=== PATIENT | female | born 1975 | race Two or more races ===

== ENCOUNTER 2023-04-01 18:09 | Emergency (ER) | payer OTHER ==
[~2023-04-01] VITALS: Ht 167.6 cm; Wt 72.6 kg
== END 2023-04-01 18:58 | disposition home or self-care (01) ==
LOC: ER 18:09
DX: S60.519A Abrasion of unspecified hand, initial encounter (principal); S50.819A Abrasion of unspecified forearm, initial encounter; W55.01XA Bitten by cat, initial encounter; Y93.89 Activity, other specified; Y92.89 Other specified places as the place of occurrence of the external cause; Y99.8 Other external cause status

== ENCOUNTER 2023-04-23 12:52 | Emergency (ER) | payer OTHER ==
[~2023-04-23] VITALS: Ht 167.6 cm; Wt 71.2 kg
== END 2023-04-23 16:26 | disposition home or self-care (01) ==
LOC: ER 12:52
DX: M79.641 Pain in right hand (principal); S61.451S Open bite of right hand, sequela; W55.01XS Bitten by cat, sequela; R60.0 Localized edema; R20.2 Paresthesia of skin

== ENCOUNTER 2023-06-30 13:11 | Emergency (ER) | payer OTHER ==
[~2023-06-30] VITALS: Ht 167.6 cm; Wt 70.8 kg
[2023-06-30 14:47] LABS: HEMATOCRIT 37.7 % (36.0-45.00); HEMOGLOBIN 12.1 g/dL (12.0-15.00); MEAN CELL VOLUME 85.4 fL (80.00-100.00); MEAN CORPUSCULAR HEMOGLOBIN 27.5 pg (27.00-32.0); MEAN CORPUSCULAR HGB CONC 32.2 g/dl (32.0-36.0); PLATELET COUNT 271 K/uL (150-450); RED BLOOD COUNT 4.41 M/uL (4.00-6.00)
[2023-06-30 15:03] LABS: RED CELL DISTRIBUTION WIDTH 17.6 % (11.5-14.5)
== END 2023-06-30 16:45 | disposition home or self-care (01) ==
LOC: ER 13:11
PROVIDERS: General Practice
DX: R51.9 Headache, unspecified (principal); D64.9 Anemia, unspecified

== ENCOUNTER 2023-12-05 12:58 | Emergency (ER) | payer OTHER ==
[~2023-12-05] VITALS: Ht 167.6 cm; Wt 70.8 kg
[2023-12-05] MEDS ORDERED: 0.9 % SODIUM CHLORIDE 1,000 ML IV STA (14:22)
[2023-12-05 15:14] LABS: HEMATOCRIT 45.8 % (36.0-45.00); HEMOGLOBIN 15.4 g/dL (12.0-15.00); MEAN CELL VOLUME 86.5 fL (80.00-100.00); MEAN CORPUSCULAR HGB CONC 33.5 g/dl (32.0-36.0); PLATELET COUNT 277 K/uL (150-450); RED BLOOD COUNT 5.29 M/uL (4.00-6.00); RED CELL DISTRIBUTION WIDTH 15.5 % (11.5-14.5)
[2023-12-05 15:37] LABS: CALCIUM 10.6 mg/dL (8.5-10.1); CREATININE SERUM 0.53 mg/dL (0.55-1.02); GFR 123.65
== END 2023-12-05 16:44 | disposition home or self-care (01) ==
LOC: ER 12:59
PROVIDERS: General Practice
DX: N93.8 Other specified abnormal uterine and vaginal bleeding (principal); R10.2 Pelvic and perineal pain